=== PATIENT | female | born 1980 | race Caucasian/White ===

== ENCOUNTER 2023-02-06 18:57 | Emergency (ER) | payer OTHER ==
[~2023-02-06] VITALS: Ht 152.4 cm; Wt 77.1 kg
[~2023-02-06 18:57] MED LIST: ALBU90OI61 INH; CEFD300 PO; MEDR150I IM; PRED10 PO; Sprintec1 EACH PO
[2023-02-06 19:08] VITALS: BP 128/77
== END 2023-02-06 20:42 | disposition home or self-care (01) ==
LOC: ER 18:57
DX: S60.111A Contusion of right thumb with damage to nail, initial encounter (principal); W23.0XXA Caught, crushed, jammed, or pinched between moving objects, initial encounter; Z79.899 Other long term (current) drug therapy
CPT/HCPCS: 11740; 99283-25